=== PATIENT | female | born 1985 | race African-American/Black ===

== ENCOUNTER 2019-06-16 13:47 | Emergency (ER) | payer MEDICAID ==
[~2019-06-16] VITALS: Ht 170.2 cm; Wt 99.8 kg
[2019-06-16 13:55] VITALS: BP 171/93
[2019-06-16] MEDS ORDERED: KETOROLAC TROMETH 60MG/2ML VIAL IM ONE (15:00)
[2019-06-16] MEDS ORDERED: cefTRIAXone SOD 1,000 MG VL IM ONE (15:00)
== END 2019-06-16 15:31 | disposition home or self-care (01) ==
LOC: ER 13:51
DX: L03.111 Cellulitis of right axilla (principal); F17.210 Nicotine dependence, cigarettes, uncomplicated
CPT/HCPCS: 96372; 99283; J0696; J1885

== ENCOUNTER 2020-05-24 17:50 | Emergency (ER) | payer MEDICAID ==
[~2020-05-24] VITALS: Ht 170.2 cm; Wt 133.8 kg
[2020-05-24 18:00] VITALS: BP 136/78
[2020-05-24 19:49] LABS: Basophils # (auto) 0 10 ^3/uL (0-0.2); Basophils % (auto) 0.4 % (0.0-2.0); Eosinophils # (auto) 0.1 10 ^3/uL (0-0.8); Lymphocytes # (auto) 1.1 10 ^3/uL (0.4-5.4); Lymphocytes % (auto) 13.5 % (10.0-50.0); Neutrophils # (auto) 6.7 10 ^3/uL (1.6-8.6); Nucleated Red Blood Cells % 0.1 %
[2020-05-24 19:50] LABS: Eosinophils % (auto) 1.4 % (0.0-7.0); Hematocrit 33.2 % (36.0-46.0); Hemoglobin 10.6 g/dL (12.2-16.2); Mean Corpuscular Hemoglobin 26.5 pg (28.0-32.0); Mean Corpuscular Hgb Conc. 31.9 g/dL (32.0-36.0); Monocytes # (auto) 0.4 10 ^3/uL (0-1.3); Monocytes % (auto) 5.1 % (0.0-12.0); Neutrophils % (auto) 79.6 % (37.0-80.0); Platelet Count (auto) 297 10^3/uL (140-450); Red Cell Distribution Width 17.1 % (11.8-14.3); White Blood Cell 8.4 10^3/uL (4.4-10.8)
[2020-05-24 20:03] LABS: Albumin 2.9 g/dL (3.4-5.0); BUN/Creatinine Ratio 8.1; Calcium 9.1 mg/dL (8.5-10.1); Potassium 3.6 mmol/L (3.5-5.1)
[2020-05-24 20:06] LABS: Bilirubin, Total 0.2 mg/dL (0.2-1.0); Total Protein 7.1 g/dL (6.4-8.2)
[2020-05-24] MEDS ORDERED: LABETALOL HCL 200 MG TAB PO ONE (21:15)
== END 2020-05-24 21:41 | disposition home or self-care (01) ==
LOC: ER 17:50
DX: O16.2 Unspecified maternal hypertension, second trimester (principal); Z3A.25 25 weeks gestation of pregnancy
CPT/HCPCS: 36415; 80053; 85025

== ENCOUNTER 2020-08-19 13:50 | Observation (INO) | payer MEDICAID ==
[~2020-08-19] VITALS: Ht 162.6 cm; Wt 149.7 kg
[2020-08-19] MEDS ORDERED: LABETALOL HCL 200 MG TAB PO SCH (22:00)
== END 2020-08-19 15:40 | disposition home or self-care (01) ==
LOC: UNDOADMOB 13:50 → LDRP 13:50 → UNDODISOB 15:40
PROVIDERS: ADMIT Specialist; ATTEND Specialist
DX: O62.9 Abnormality of forces of labor, unspecified (principal); Z87.891 Personal history of nicotine dependence; Z3A.37 37 weeks gestation of pregnancy
CPT/HCPCS: 59025; 76805; 81002; G0378

== ENCOUNTER 2020-09-04 08:01 | Emergency (ER) | payer MEDICAID ==
[~2020-09-04] VITALS: Ht 175.3 cm; Wt 127.0 kg
[2020-09-04] MEDS ORDERED: cloNIDine HCL 0.1 MG TAB ONE (08:06)
[2020-09-04] MEDS ORDERED: cloNIDine HCL 0.1 MG TAB PO ONE (08:15)
[2020-09-04 09:54] VITALS: BP 170/95
== END 2020-09-04 09:53 | disposition home or self-care (01) ==
LOC: EDBD 08:01 → ER 08:01
DX: I10 Essential (primary) hypertension (principal); J18.9 Pneumonia, unspecified organism; F17.210 Nicotine dependence, cigarettes, uncomplicated; Z20.828 Contact with and (suspected) exposure to other viral communicable diseases
CPT/HCPCS: 36415; 71045; 87426

== ENCOUNTER 2023-07-03 17:02 | Emergency (ER) | payer MEDICAID ==
[~2023-07-03] VITALS: Ht 170.2 cm; Wt 153.6 kg
[2023-07-03 17:10] VITALS: BP 155/95; RESP 20; O2SAT 99
[2023-07-03 17:45] LABS: Basophils # (auto) 0 10 ^3/uL (0-0.2); Basophils % (auto) 0.5 % (0.0-2.0); Eosinophils # (auto) 0.1 10 ^3/uL (0-0.8); Eosinophils % (auto) 2.7 % (0.0-7.0); Hematocrit 33.8 % (36.0-46.0); Hemoglobin 10.6 g/dL (12.2-16.2); Lymphocytes # (auto) 1.7 10 ^3/uL (0.4-5.4); Lymphocytes % (auto) 32.4 % (10.0-50.0); Mean Corpuscular Hemoglobin 23.9 pg (28.0-32.0); Mean Corpuscular Hgb Conc. 31.3 g/dL (32.0-36.0); Mean Corpuscular Volume 76.5 fL (80.0-100.0); Monocytes # (auto) 0.3 10 ^3/uL (0-1.3); Monocytes % (auto) 6.6 % (0.0-12.0); Neutrophils % (auto) 57.8 % (37.0-80.0); Nucleated Red Blood Cells % 0.2 %; Red Blood Cells 4.41 10^6/uL (4.0-5.20); Red Cell Distribution Width 17.4 % (11.8-14.3); White Blood Cell 5.2 10^3/uL (4.4-10.8)
[2023-07-03 18:03] LABS: Alanine Aminotransferase 12 U/L (7-40); Alkaline Phosphatase 94 U/L (46-116); Anion Gap 8 (5-15); Blood Urea Nitrogen 6 mg/dL (9-23); Calcium 9.1 mg/dL (8.5-10.1); Carbon Dioxide 27 mmol/L (20-30); Chloride 103 mmol/L (98-107); Glucose 115 mg/dL (74-106); Potassium 3.7 mmol/L (3.5-5.1); Sodium 138 mmol/L (136-145)
[2023-07-03 18:04] LABS: Albumin 4.4 g/dL (3.2-4.8); Aspartate Aminotransferase 11 U/L (13-40); BUN/Creatinine Ratio 7.3 (10.0-20.0); Bilirubin, Total 0.4 mg/dL (0.2-1.0); Total Protein 7.6 g/dL (5.7-8.2)
[2023-07-03 18:12] LABS: INR 1.02 (0.9-1.15); Partial Thromboplastin Time 30.2 SEC (24.5-34.5); Prothrombin Time 10.7 sec (9.3-11.8)
[2023-07-03 18:25] VITALS: PULSE 89
== END 2023-07-03 20:12 | disposition home or self-care (01) ==
LOC: ER 17:02
DX: R07.89 Other chest pain (principal); R51.9 Headache, unspecified; I10 Essential (primary) hypertension; I25.2 Old myocardial infarction; F17.210 Nicotine dependence, cigarettes, uncomplicated
CPT/HCPCS: 36415; 71046; 80053; 84484; 85025; 85379; 85610; 85730; 93005; 93971

== ENCOUNTER 2023-11-03 22:48 | Inpatient (IN) | payer MEDICAID ==
[~2023-11-03] VITALS: Ht 170.2 cm; Wt 158.1 kg
[2023-11-03 23:18] LABS: Basophils # (auto) 0 10 ^3/uL (0-0.2); Basophils % (auto) 0.7 % (0.0-2.0); Eosinophils # (auto) 0.1 10 ^3/uL (0-0.8); Eosinophils % (auto) 2.3 % (0.0-7.0); Hematocrit 31.5 % (36.0-46.0); Hemoglobin 9.8 g/dL (12.2-16.2); Lymphocytes # (auto) 1.7 10 ^3/uL (0.4-5.4); Lymphocytes % (auto) 31.2 % (10.0-50.0); Mean Corpuscular Hemoglobin 23.5 pg (28.0-32.0); Mean Corpuscular Hgb Conc. 31.2 g/dL (32.0-36.0); Mean Corpuscular Volume 75.2 fL (80.0-100.0); Monocytes # (auto) 0.4 10 ^3/uL (0-1.3); Monocytes % (auto) 8.4 % (0.0-12.0); Neutrophils % (auto) 57.4 % (37.0-80.0); Red Blood Cells 4.19 10^6/uL (4.0-5.20); Red Cell Distribution Width 18.7 % (11.8-14.3); White Blood Cell 5.3 10^3/uL (4.4-10.8)
[2023-11-03 23:38] LABS: Alanine Aminotransferase 13 U/L (7-40); Albumin 4.2 g/dL (3.2-4.8); Alkaline Phosphatase 102 U/L (46-116); Anion Gap 4 (5-15); Aspartate Aminotransferase 12 U/L (13-40); BUN/Creatinine Ratio 11.4 (10.0-20.0); Bilirubin, Total 0.2 mg/dL (0.2-1.0); Blood Urea Nitrogen 9 mg/dL (9-23); Calcium 9.2 mg/dL (8.7-10.4); Carbon Dioxide 27 mmol/L (20-30); Chloride 106 mmol/L (98-107); Glucose 113 mg/dL (74-106); Magnesium 1.9 mg/dL (1.6-2.6); Potassium 3.9 mmol/L (3.5-5.1); Sodium 137 mmol/L (136-145); Total Protein 7.3 g/dL (5.7-8.2)
[2023-11-04] MEDS ORDERED: NITROGLYCERIN 0.4 MG SL TAB SL PRN (03:45)
[2023-11-04] MEDS ORDERED: MORPHINE SULFATE INJ 2 MG/ml SYRG IV PRN (03:45)
[2023-11-04] MEDS ORDERED: TEMAZEPAM 15 MG CAP PO PRN (03:45)
[2023-11-04] MEDS ORDERED: hydrALAZINE HCL 20 MG/ML VL IV PRN (03:45)
[2023-11-04] MEDS ORDERED: ONDANSETRON HCL 4 MG/2 ML VIAL IV PRN (03:45)
[2023-11-04 06:35] VITALS: PULSE 76; RESP 15; O2SAT 95
[2023-11-04 07:37] VITALS: PULSE 85; RESP 16; O2SAT 98
[2023-11-04] MEDS: amLODIPine BESYLATE 5 MG TAB PO SCH (10:00)
[2023-11-04] MEDS: SERTRALINE HCL 50 MG TAB PO SCH (10:14)
[2023-11-04] MEDS: GABAPENTIN 300 MG CAP PO SCH (10:14)
[2023-11-04] MEDS: LOSARTAN POTASSIUM 50 MG TAB PO SCH (10:15)
[2023-11-04 11:18] LABS: Basophils # (auto) 0 10 ^3/uL (0-0.2); Basophils % (auto) 0.9 % (0.0-2.0); Eosinophils # (auto) 0.1 10 ^3/uL (0-0.8); Eosinophils % (auto) 2.4 % (0.0-7.0); Hematocrit 31.2 % (36.0-46.0); Hemoglobin 9.7 g/dL (12.2-16.2); Lymphocytes # (auto) 1.3 10 ^3/uL (0.4-5.4); Lymphocytes % (auto) 29.7 % (10.0-50.0); Mean Corpuscular Hemoglobin 23.3 pg (28.0-32.0); Monocytes # (auto) 0.3 10 ^3/uL (0-1.3); Monocytes % (auto) 7.5 % (0.0-12.0); Neutrophils # (auto) 2.7 10 ^3/uL (1.6-8.6); Neutrophils % (auto) 59.5 % (37.0-80.0); Red Blood Cells 4.16 10^6/uL (4.0-5.20); Red Cell Distribution Width 18.9 % (11.8-14.3); White Blood Cell 4.5 10^3/uL (4.4-10.8)
[2023-11-04 11:30] LABS: INR 1.01 (0.9-1.15); Partial Thromboplastin Time 30.6 SEC (24.5-34.5); Prothrombin Time 10.6 sec (9.3-11.8)
[2023-11-04 11:32] LABS: % Iron Saturation 5.6 % (15-50); Alanine Aminotransferase 13 U/L (7-40); Alkaline Phosphatase 102 U/L (46-116); Calcium 8.8 mg/dL (8.7-10.4); Carbon Dioxide 26 mmol/L (20-30); Chloride 106 mmol/L (98-107); Glucose 127 mg/dL (74-106); Potassium 3.8 mmol/L (3.5-5.1)
[2023-11-04 11:33] LABS: Albumin 4.1 g/dL (3.2-4.8); Anion Gap 5 (5-15); Aspartate Aminotransferase 9 U/L (13-40); BUN/Creatinine Ratio 12.2 (10.0-20.0); Bilirubin, Total 0.3 mg/dL (0.2-1.0); Blood Urea Nitrogen 9 mg/dL (9-23); Magnesium 1.7 mg/dL (1.6-2.6); Phosphorus 3.9 mg/dL (2.4-5.1); Sodium 137 mmol/L (136-145)
[2023-11-04 11:47] LABS: LDL Cholesterol 85 mg/dL (< 100); Triglycerides 63 mg/dL (< 150)
[2023-11-04 11:49] LABS: Cholesterol 129 mg/dL (< 200); HDL Cholesterol 39 mg/dL (40-59)
[2023-11-04 17:20] VITALS: RESP 16; O2SAT 98
[2023-11-04 19:59] VITALS: PULSE 79; RESP 13; O2SAT 96
[2023-11-04] MEDS: ACETAMINOPHEN 325 MG TAB PO PRN (20:46)
[2023-11-05 09:11] LABS: Urine Bacteria NONE SEEN /hpf (None Seen); Urine Blood 3+ /uL (Negative); Urine Clarity HAZY (Clear); Urine Color Yellow (Yellow); Urine Mucus MODERATE (None Seen); Urine Protein, UAD 1+ (Negative); Urine Specific Gravity 1.037 (1.001-1.035); Urine WBC 22 /hpf (0 - 5)
[2023-11-05 09:15] LABS: Chloride 107 mmol/L (98-107); Potassium 4.4 mmol/L (3.5-5.1); Sodium 139 mmol/L (136-145)
[2023-11-05 09:16] LABS: Anion Gap 5 (5-15); Carbon Dioxide 27 mmol/L (20-30)
[2023-11-05 09:17] LABS: Calcium 8.6 mg/dL (8.5-10.1)
[2023-11-05 09:21] LABS: BUN/Creatinine Ratio 11.4 (10.0-20.0); Blood Urea Nitrogen 9 mg/dL (9-23); Glucose 97 mg/dL (74-106)
[2023-11-05 09:25] LABS: Amphetamine Screen, Urine Neg (NEGATIVE); Barbiturate Scree,Urine Neg (NEGATIVE); Benzodiazephine Screen, Urine Neg (NEGATIVE); Cannabinoid Screen, Urine Neg (NEGATIVE); Cocaine Screen, Urine Neg (NEGATIVE); Opiate Scree,Urine Neg (NEGATIVE); Phencyclidine Screen, Urine Neg (NEGATIVE)
[2023-11-05] MEDS: ERGOCALCIFEROL 50,000 UNIT(1.25MG) CAP PO SCH (11:09)
[2023-11-05] MEDS: IRON SUCROSE COMPLEX 100 ML IV SCH (12:32)
[2023-11-05 16:00] VITALS: O2SAT 96
[2023-11-05] MEDS ORDERED: GABA-339 PO (17:12)
[2023-11-05] MEDS ORDERED: FERR1TAB36 PO (17:12)
[2023-11-05] MEDS ORDERED: LOSA25TA15 PO (17:12)
[2023-11-05] MEDS ORDERED: SERT25TA84 PO (17:12)
[2023-11-05] MEDS ORDERED: AML5T PO (17:13)
[2023-11-05 17:29] VITALS: BP 124/65; PULSE 82; RESP 20; O2SAT 96
[2023-11-05 20:00] VITALS: PULSE 110; PULSE 84; RESP 17; O2SAT 98
[2023-11-05 22:00] VITALS: BP 147/80; PULSE 86; RESP 20; TEMP 98.2; O2SAT 98
[2023-11-05 22:30] VITALS: PULSE 87; O2SAT 97
[2023-11-05 22:52] VITALS: O2SAT 97
[2023-11-06] VITALS (11 sets, daily range): BP systolic 113–155; BP diastolic 66–85; PULSE 61–90; RESP 16–20; TEMP 97.9–98.3; O2SAT 97–100
[2023-11-06 05:13] LABS: Basophils # (auto) 0 10 ^3/uL (0-0.2); Basophils % (auto) 0.6 % (0.0-2.0); Eosinophils # (auto) 0.1 10 ^3/uL (0-0.8); Eosinophils % (auto) 2.6 % (0.0-7.0); Hematocrit 30.9 % (36.0-46.0); Hemoglobin 9.6 g/dL (12.2-16.2); Lymphocytes # (auto) 1.8 10 ^3/uL (0.4-5.4); Lymphocytes % (auto) 33.3 % (10.0-50.0); Mean Corpuscular Hemoglobin 23.2 pg (28.0-32.0); Mean Corpuscular Hgb Conc. 31.1 g/dL (32.0-36.0); Mean Corpuscular Volume 74.7 fL (80.0-100.0); Monocytes # (auto) 0.4 10 ^3/uL (0-1.3); Monocytes % (auto) 8.3 % (0.0-12.0); Neutrophils # (auto) 2.9 10 ^3/uL (1.6-8.6); Neutrophils % (auto) 55.2 % (37.0-80.0); Nucleated Red Blood Cells % 0.1 %; Red Blood Cells 4.14 10^6/uL (4.0-5.20); Red Cell Distribution Width 18.8 % (11.8-14.3); White Blood Cell 5.3 10^3/uL (4.4-10.8)
[2023-11-06] MEDS ORDERED: CHOL1CAP47 PO (12:02)
[2023-11-06] MEDS ORDERED: CHOL1TAB28 PO (15:39)
[2023-11-06] MEDS ORDERED: FER325T PO (15:39)
[2023-11-11 03:06] LABS: VMA Random Urine 10.4 mg/L (Undefined); VMA/CREAT Ratio Random Urine 2.7 mg/g Creat (0.0-6.0)
[2023-11-11 06:06] LABS: Renin Activity 0.257 ng/mL/hr (.)
== END 2023-11-06 17:22 | disposition home or self-care (01) | DRG 203 ==
LOC: ER 22:48 → TELE 11-04 03:39 → TELE-WESTW 11-05 14:54
PROVIDERS: ADMIT Nurse Practitioner; ATTEND Internal Medicine Geriatric Medicine
PROC: 5A09357 Assistance with Respiratory Ventilation, Less than 24 Consecutive Hours, Continuous Positive Airway Pressure (ICD-10-PCS; principal; 2023-11-05)
PROC: 5A09357 Assistance with Respiratory Ventilation, Less than 24 Consecutive Hours, Continuous Positive Airway Pressure (ICD-10-PCS; 2023-11-05)
DX: M94.0 Chondrocostal junction syndrome [Tietze] (principal); Z68.43 Body mass index [BMI] 50.0-59.9, adult; D50.9 Iron deficiency anemia, unspecified; E55.9 Vitamin D deficiency, unspecified; F17.200 Nicotine dependence, unspecified, uncomplicated; F41.0 Panic disorder [episodic paroxysmal anxiety]; R55 Syncope and collapse; E66.01 Morbid (severe) obesity due to excess calories; G47.30 Sleep apnea, unspecified; R73.03 Prediabetes; I10 Essential (primary) hypertension; Z83.3 Family history of diabetes mellitus; Z80.1 Family history of malignant neoplasm of trachea, bronchus and lung; Z82.49 Family history of ischemic heart disease and other diseases of the circulatory system
CPT/HCPCS: 36415; 70450; 70551; 71045; 80048; 80053; 80061; 80307; 81001; 82043; 82088; 82306; 82533; 82570; 82607; 82746; 83036; 83540; 83550; 83605; 83615; 83735; 83835; 83880; 84100; 84244; 84443; 84484; 84585; 85025; 85045; 85379; 85610; 85730; 93005; 93306; 93886; 94660; 95819; G0378; J1756

== ENCOUNTER 2024-04-16 11:32 | Inpatient (IN) | payer MEDICAID ==
[~2024-04-16] VITALS: Ht 170.2 cm; Wt 162.0 kg
[~2024-04-16 11:32] MED LIST: AML5T PO; CHOL1TAB28 PO; FER325T PO; FERR1TAB36 PO; GABA-339 PO; SERT25TA84 PO
[2024-04-16 12:05] LABS: Urine Bacteria None Seen /hpf (None Seen)
[2024-04-16 12:13] LABS: Urine Blood Negative /uL (Negative); Urine Clarity Clear (Clear); Urine Color Light-Yellow (Yellow); Urine Mucus FEW (None Seen); Urine Protein, UAD TRACE (Negative); Urine Specific Gravity 1.026 (1.001-1.035); Urine Urobilinogen Normal (Negative); Urine WBC 1 /hpf (0 - 5); Urine pH 5.5 (5.0-9.0)
[2024-04-16 12:31] LABS: Basophils # (auto) 0 10 ^3/uL (0-0.2); Eosinophils # (auto) 0.1 10 ^3/uL (0-0.8); Hemoglobin 10.5 g/dL (12.2-16.2); Lymphocytes # (auto) 1.3 10 ^3/uL (0.4-5.4); Monocytes # (auto) 0.2 10 ^3/uL (0-1.3); Monocytes % (auto) 4.8 % (0.0-12.0); Neutrophils # (auto) 3.4 10 ^3/uL (1.6-8.6); Neutrophils % (auto) 66.8 % (37.0-80.0)
[2024-04-16 12:35] LABS: Basophils % (auto) 0.5 % (0.0-2.0); Eosinophils % (auto) 2.2 % (0.0-7.0); Hematocrit 32.4 % (36.0-46.0); Lymphocytes % (auto) 25.7 % (10.0-50.0); Mean Corpuscular Hemoglobin 25.2 pg (28.0-32.0); Mean Corpuscular Hgb Conc. 32.3 g/dL (32.0-36.0); Mean Corpuscular Volume 78.1 fL (80.0-100.0); Red Blood Cells 4.15 10^6/uL (4.0-5.20); Red Cell Distribution Width 17.7 % (11.8-14.3)
[2024-04-16 12:42] LABS: Chloride 104 mmol/L (98-107); Potassium 3.8 mmol/L (3.5-5.1); Sodium 138 mmol/L (136-145)
[2024-04-16 12:43] LABS: Anion Gap 7 (5-15); Calcium 9.3 mg/dL (8.7-10.4); Carbon Dioxide 27 mmol/L (20-30)
[2024-04-16 12:48] LABS: BUN/Creatinine Ratio 11.1 (10.0-20.0); Blood Urea Nitrogen 9 mg/dL (9-23); Glucose 149 mg/dL (74-106)
[2024-04-16 14:13] VITALS: PULSE 85; RESP 17; O2SAT 99
[2024-04-16 15:17] VITALS: PULSE 84; RESP 18; O2SAT 97
[2024-04-16] MEDS: KETOROLAC TROMETH 30 MG/ML 1ML VIAL IV ONE (15:54)
[2024-04-16] MEDS ORDERED: hydrALAZINE HCL 20 MG/ML VL IV PRN (16:00)
[2024-04-16] MEDS ORDERED: ACETAMINOPHEN 325 MG TAB PO PRN (16:00)
[2024-04-16] MEDS ORDERED: IBUPROFEN 800 MG TAB PO PRN (16:00)
[2024-04-16] MEDS ORDERED: KETOROLAC TROMETH 30 MG/ML 1ML VIAL IV PRN (16:00)
[2024-04-16 16:27] LABS: Triglycerides 89 mg/dL (< 150)
[2024-04-16 16:28] LABS: LDL Cholesterol 79 mg/dL (< 100)
[2024-04-16 16:29] LABS: Cholesterol 133 mg/dL (< 200); HDL Cholesterol 42 mg/dL (40-59)
[2024-04-16 16:52] LABS: Erythrocyte Sedimentation Rate 22 mm/hr (0-20)
[2024-04-16 16:53] VITALS: BP 159/88; TEMP 98.6
[2024-04-16 18:54] VITALS: PULSE 76; RESP 18; O2SAT 95
[2024-04-16] MEDS ORDERED: LOSA-534 PO (20:26)
[2024-04-16] MEDS ORDERED: GABAPENTIN 300 MG CAP PO SCH (22:00)
[2024-04-17] MEDS ORDERED: SERTRALINE HCL 50 MG TAB PO SCH (10:00)
[2024-04-17] MEDS ORDERED: PATIENTS OWN MEDICATION (Gabapentin 600 MG) PO SCH (10:00)
[2024-04-17] MEDS ORDERED: GABAPENTIN 300 MG CAP PO SCH (10:00)
[2024-04-17] MEDS ORDERED: PATIENTS OWN MEDICATION (Sertraline Hcl (Zoloft) 1 TAB) PO SCH (10:00)
[2024-04-17] MEDS ORDERED: amLODIPine BESYLATE 5 MG TAB PO SCH (10:00)
[2024-04-17] MEDS ORDERED: FERROUS SULFATE 325mg EC TAB PO SCH (10:00)
[2024-04-17] MEDS ORDERED: CHOLECALCIFEROL 2000 UNIT PO SCH (10:00)
[2024-04-17] MEDS ORDERED: CHOLECALCIFEROL (VITD3) 1,000UNIT=25mCg TAB PO SCH (10:00)
== END 2024-04-16 20:45 | disposition left against medical advice (07) | DRG 251 ==
LOC: ER 11:32 → TELE 15:59 → TELE-WESTW 17:15
PROVIDERS: ADMIT Nurse Practitioner Family; ATTEND Nurse Practitioner Family
DX: R10.9 Unspecified abdominal pain (principal); Z68.43 Body mass index [BMI] 50.0-59.9, adult; R73.9 Hyperglycemia, unspecified; D64.9 Anemia, unspecified; E66.01 Morbid (severe) obesity due to excess calories; I10 Essential (primary) hypertension; F32.A Depression, unspecified; R31.9 Hematuria, unspecified; Z83.3 Family history of diabetes mellitus
CPT/HCPCS: 36415; 74176; 76856; 80048; 80061; 81001; 81025; 84443; 85025; 85652; 96374; G0378; J1885

== ENCOUNTER 2025-07-05 16:42 | Observation (INO) | payer MEDICAID ==
[~2025-07-05] VITALS: Ht 165.1 cm; Wt 141.2 kg
[~2025-07-05 16:42] MED LIST changes: -CHOL1TAB28 PO; -FERR1TAB36 PO; +LOSA-534 PO; -SERT25TA84 PO
[2025-07-05 16:43] VITALS: BP 147/83; PULSE 87; RESP 15; TEMP 98; O2SAT 96
--- NOTE | 2025-07-05 17:02 | ED.PDOC ---
History of Present Illness HPI Comments 39-year-old female presents to the ER with prior medical history of hypertension, diabetes in the chief complaint of the abdominal pain. Patient is currently 29 weeks and had mild cramping last night but worsened this morning. Patient came in today due from noticing a decrease in movement. Patient is , and high-risk due from hypertension and diabetes. Denies any other symptoms at this time. Denies chills, fever, N/V/D, SOB, CP. No other associated symptoms, modifiers, recent injuries or sick contacts present at this time. Chief Complaint: Abdominal Pain Time Seen by MD: 17:00 Primary Care Provider: unknown Reviewed Notes: Nurses Notes, Medications, Allergies Allergies: Coded Allergies: NO KNOWN ALLERGIES (Unverified , 05/27/10) Home Meds Active Scripts Ferrous Sulfate (FERROUS SULFATE) 325 Mg Tb, 1 TAB PO DAILY, #30 TAB 0 Refills Prov:BERTO VU MD 11/06/23 Reported Medications Losartan Potassium (Losartan Potassium) 50 Mg Tab, 1 TAB PO DAILY, #30 TAB 5 Refills 04/16/24 Amlodipine Besylate (NORVASC TABLET) 5 Mg Tb, 2 TAB PO DAILY, #30 TAB 5 Refills 11/05/23 Gabapentin (Gabapentin) 600 Mg Tab, 600 MG PO DAILY for 30 Days, MG 11/05/23 Information Source: Patient Mode of Arrival: Ambulatory Severity: Moderate Timing: Hours Duration: Since onset, Hours Prehospital treatment: None Past Medical History PAST MEDICAL HISTORY: DM, HTN 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 Family History Family History: Reviewed,noncontributory to illness, Unknown Social History Smoker: Non-Smoker Alcohol: Denies ETOH Use Drugs: Denies Drug Use Lives In: Home Constitutional: denies: chills, diaphoresis, fatigue, fever, malaise, sweats, weakness, others EENTM: denies: blurred vision, double vision, ear bleeding, ear discharge, ear drainage, ear pain, ear ringing, eye pain, eye redness, hearing loss, mouth pain, mouth swelling, nasal discharge, nose bleeding, nose congestion, nose pain, photophobia, tearing, throat pain, throat swelling, voice changes, others Respiratory: denies: cough, hemoptysis, orthopnea, SOB at rest, shortness of breath, SOB with excertion, stridor, wheezing, others Cardiovascular: denies: chest pain, dizzy spells, diaphoresis, Dyspnea on exertion, edema, irregular heart beat, left arm pain, lightheadedness, palpitations, PND, syncope, others Gastrointestinal: reports: abdominal pain; denies: abdomen distended, blood streaked bowels, constipated, diarrhea, dysphagia, difficulty swallowing, hematemesis, melena, nausea, poor appetite, poor fluid intake, rectal bleeding, rectal pain, vomiting, others Genitourinary: reports: (Twenty-nine weeks); denies: abnormal vagina bleeding, burning, dyspareunia, dysuria, flank pain, frequency, hematuria, incontinence, pain, vagina discharge, urgency, others Neurological: denies: dizziness, fainting, headache, left sided numbness, left sided weakness, numbness, paresthesia, pre-existing deficit, right sided numbness, right sided weakness, seizure, speech problems, tingling, tremors, weakness, others Musculoskeletal: denies: back pain, gout, joint pain, joint swelling, muscle pain, muscle stiffness, neck pain, others Integumetry: denies: bruises, change in color, change in hair/nails, dryness, laceration, lesions, lumps, rash, wounds, others Allergic/Immunocompromised: denies: Difficulty Healing, Frequent Infections, Hives, Itching, others Hematologic/Lymphatic: denies: anemia, blood clots, easy bleeding, easy bruising, swollen glands, others Endocrine: denies: excessive hunger, excessive sweating, excessive thirst, excessive urination, flushing, intolerance to cold, intolerance to heat, unexplained weight gain, unexplained weight loss, others Psychiatric: denies: anxiety, bipolar disorder, depression, hopeless, panic disorder, schizophrenia, sleepless, suicidal, others All Other Systems: Reviewed and Negative Physical Exam General Appearance: No Apparent Distress, Normal HEENT: Normal ENT Inspection, Pharynx Normal, TMs Normal Neck: Full Range of Motion, Non-Tender, Normal, Normal Inspection Respiratory: Chest Non-Tender, Lungs Clear, No Accessory Muscle Use, No Respiratory Distress, Normal Breath Sounds Cardiovascular: No Edema, No JVD, No Murmur, No Gallop, Normal Peripheral Pulses, Regular Rate/Rhythm Breast Exam: Deferred Gastrointestinal: No Organomegaly, Non Tender, No Pulsatile Mass, Normal Bowel Sounds, Soft Genitalia: Deferred Pelvic: Deferred Rectal: Deferred Extremities: No calf tenderness, Normal capillary refill, Normal inspection, Normal range of motion, Non-tender, No pedal edema Musculoskeletal : Apperance: Normal Neurologic: Alert, privacy analyst II-XII nml as Tested, No Motor Deficits, Normal Affect, Normal Mood, No Sensory Deficits Cerebellar Function: Normal Reflexes: Normal Skin: Dry, Normal Color, Warm Lymphatic: No Adenopathy Was a procedure done? Was a procedure done?: No Differential Dx Considerations may include: miscarriage X-Ray, Labs, Meds, VS Vital Signs Date Time Temp Pulse Resp B/P (MAP) Pulse Ox O2 Delivery O2 Flow Rate FiO2 07/05/25 16:43 98.0 87 15 147/83 96 98.0 X-Ray, Labs, Meds, VS Comment Patient claimed he was stable to proceed up to L and D. Time of 1ST Reevaluation: 17:30 Reevaluation 1ST: Unchanged Patient Education/Counseling: Diagnosis, Treatment, Prognosis Family Education/Counseling: No Family Present SEPSIS Sepsis Screen Date sepsis recognized/suspect: Jul 05, 2025 Time Sepsis recognized/suspect: 1645 Recent Procedure: No On Antibiotic Therapy: No Respiratory Rate >20: No Heart Rate >90: No Temp<36 C (96.8 F) or >38.3 C: No SBP <90 or MAP <65 mmHG: No New Acute Mental Status Change: No Is the patient on CPAP, BIPAP,: No Vital Signs Date Time Temp Pulse Resp B/P (MAP) Pulse Ox O2 Delivery O2 Flow Rate FiO2 07/05/25 16:43 98.0 87 15 147/83 96 98.0 Departure 1 Departure Time of Disposition: 17:15 Impression: Primary Impression: Abdominal cramping complicating Disposition: 30 STILL A PATIENT Condition: Guarded Critical Care Note Critical Care Time?: No Stability Stability form required: No Heart Score Heart Score: Heart Score Response (Comments) Value History N/A 0 EKG N/A 0 Age N/A 0 Risk Factors N/A 0 Troponin N/A 0 Total 0 I personally scribed for SAMEER HURST ([email or web address]) on 07/05/25 at 17:02. Electronically submitted by Amrit Vazquez ([email or web address]). SAMEER HURSTP Jul 05, 2025 17:02
[2025-07-05] MEDS ORDERED: ASPI-543 PO ×2 (18:32)
[2025-07-05] MEDS ORDERED: PREN-96 PO ×2 (18:32)
[2025-07-05] MEDS ORDERED: LABE200T33 PO ×2 (18:32)
[2025-07-05] MEDS ORDERED: BENZ20GE MT (23:07)
--- NOTE | 2025-07-07 12:51 | DVHDS2 ---
Physician Discharge Progress N Final Diagnosis: 29 wks dec movement Operations or Procedures: Operations or Procedures nst reactive reviwed,sono Condition on Discharge: Good Disposition: to er Discharge Instructions: Diet: Regular, Consistent carbohydrate Activity: No Restrictions, As Tolerated Medications: na Follow Up Care: Specialist: to er Discharge Statement: "Patient was advised to return to the ER or call 911 if any headaches, dizziness, shortness of breath, chest pain, abdominal pain, bleeding, fevers, or worsening of medical condition. Patient was counseled about treatment plan, medications, possible side effects, patientverbalized understanding. All questions were answered to the best of my ability. This discharge took greater then 30 minutes in planning, reviewing documentation, counseling the patient, and discussing with other team members." Visit Coding OBGYN Date of Service: Jul 05, 2025 Billing Provider: COURTNEY LANE DO [facility] Common Visit Codes: 10065-UJGFONP OBS CARE (HIGH) [facility] Procedure Codes: 11397-35- NON-STRESS TEST COURTNEY LANE DO Jul 07, 2025 12:51
== END 2025-07-05 18:47 | disposition home or self-care (01) ==
LOC: ER 16:42 → LDRP 17:00
PROVIDERS: ADMIT Obstetrics & Gynecology; ATTEND Obstetrics & Gynecology
DX: O16.3 Unspecified maternal hypertension, third trimester (principal); O24.913 Unspecified diabetes mellitus in pregnancy, third trimester; O99.113 Other diseases of the blood and blood-forming organs and certain disorders involving the immune mechanism complicating pregnancy, third trimester; D84.9 Immunodeficiency, unspecified; Z3A.29 29 weeks gestation of pregnancy; Z98.890 Other specified postprocedural states
CPT/HCPCS: 59025; 81002; 82948; 99284; G0378; 94760

== ENCOUNTER 2025-07-05 18:51 | Emergency (ER) | payer MEDICAID ==
[~2025-07-05] VITALS: Ht 165.1 cm; Wt 142.2 kg
[~2025-07-05 18:51] MED LIST changes: +ASPI-543 PO; +LABE200T33 PO; +PREN-96 PO
--- NOTE | 2025-07-05 19:14 | ED.PDOC ---
History of Present Illness HPI Comments 39 year old female with PMHx HTN, DM presents to the ED with a chief compliant of abscess onset 3 days. Patient is currently 28 weeks , P:4 A:2. Patient states she has been experiencing RT tooth abscess for the past 3 days, was seen at [facility] 1 day ago, prescribed Penicillin and Tylenol. Since yesterday (07/04/25) to today (07/05/25) around 12:00 patient has taken a total of 5,000mg Tylenol, about 10 - 500 mg pills. Patient began experiencing sweats, chills, LUQ pain, blurred vision last night, was not feeling baby move, she felt baby move a few minutes after, symptoms improved. Today, patient noticed abdominal pain, headache, came to ED earlier today, was sent to L&D. Patient was cleared from L&D and advised to return to ED. Patient states pain has not improved, BP was elevated 168/100. Denies fever, chills, chest pain, shortness of breath, hematemesis, dysuria, hematuria. No other symptoms or modifying factors present at this time. REVIEW OF SYSTEMS: General: No fever or fatigue. Sweats and chills. HEENT: No sore throat, no earache, no congestion, no neck pain. Tooth pain. Blurred vision. Cardiac: No chest pain. No palpitations. Lungs: No shortness of breath, no cough. GI: No nausea, no vomiting, no diarrhea, no constipation. LUQ pain. : No dysuria, frequency, or urgency. No hematuria. Musculoskeletal: No joint pain , no joint swelling, no extremity edema. Skin: No rash, no itching. Neuro: no dizziness, no weakness. Headache (And as sated in HPI) PHYSICAL EXAM: General: Awake, alert and oriented. No acute distress. Skin: Skin in warm, dry and intact. Appropriate color for ethnicity. HEENT: The head is normocephalic and atraumatic. Conjunctivae are clear without exudates or hemorrhage. Sclera is non-icteric. Eyelids are normal in appearance without swelling or lesions. Mild RT facial swelling. No gingival abscess noted. No posterior pharyngeal edema or erythema. No submental induration. Neck: The neck is supple with normal range of motion. No JVD. Cardiac: Heart rate and rhythm are normal. Respiratory: No signs of respiratory distress. Neurological: The patient is awake, alert and oriented to person, place, and time with normal speech. Speech is clear. There is no facial asymmetry. Psychiatric: Appropriate mood and affect. Good judgement and insight. Chief Complaint: Abscess Time Seen by MD: 19:10 Primary Care Provider: unknown Reviewed Notes: Medications, Allergies Allergies: Coded Allergies: NO KNOWN ALLERGIES (Unverified , 05/27/10) Home Meds Active Scripts Benzocaine (Dental) (Hurricaine) 20 % Gel, 20 % MT TIDPRN PRN for 5 Days, #1 BOTTLE Prov:THOMAS PIZARRO MD 07/05/25 Ferrous Sulfate (FERROUS SULFATE) 325 Mg Tb, 1 TAB PO DAILY, #30 TAB 0 Refills Prov:BERTO VU MD 11/06/23 Reported Medications Aspirin (Aspir-Low) 81 Mg Tab, 81 MG PO DAILY for 30 Days, MG 07/05/25 Vit W/ Ferrous Fumara ( One Daily) Daily Tab, 1 TAB PO DAILY, #90 TAB 3 Refills 07/05/25 Labetalol Hcl (Labetalol Hcl) 200 Mg Tab, 200 MG PO BID for 30 Days, MG 07/05/25 Losartan Potassium (Losartan Potassium) 50 Mg Tab, 1 TAB PO DAILY, #30 TAB 5 Refills 04/16/24 Amlodipine Besylate (NORVASC TABLET) 5 Mg Tb, 2 TAB PO DAILY, #30 TAB 5 Refills 11/05/23 Gabapentin (Gabapentin) 600 Mg Tab, 600 MG PO DAILY for 30 Days, MG 11/05/23 Information Source: Patient Mode of Arrival: Ambulatory Severity: Moderate Timing: Days Duration: Since onset Prehospital treatment: Pain Meds Past Medical History PAST MEDICAL HISTORY: DM, HTN Surgical History (Other): Gastric sleeve WORKERS' COMPENSATION MAGISTRATE History: Denies all WORKERS' COMPENSATION MAGISTRATE Hx Family History Family History: Reviewed,noncontributory to illness Social History Smoker: Non-Smoker Alcohol: Denies ETOH Use Drugs: Denies Drug Use Lives In: Home Was a procedure done? Was a procedure done?: Yes Sedation Sedation?: No Informed consent obtained: Yes Other Procedure Procedure Dental Block Anesthetic 50/50 Bupivucane 0.25%/ Lidocaine w/o epi 1%. 6 mL Informed consent obtained: Yes Risks, benefits, and alternati: Yes Differential Dx Considerations may include: Differential diagnoses considered include but are not limited to dental caries, dental abscess, gingivitis, dental trauma, pharyngitis, cellulitis, other. X-Ray, Labs, Meds, VS Vital Signs Date Time Temp Pulse Resp B/P (MAP) Pulse Ox O2 Delivery O2 Flow Rate FiO2 07/05/25 23:38 98.9 85 20 141/68 (92) 99 98.9 07/05/25 23:18 85 20 171/88 07/05/25 22:00 84 15 160/72 (101) 07/05/25 20:00 85 07/05/25 19:44 80 16 99 Room Air* 0 21 07/05/25 19:44 98.9 80 16 179/98 (125) 99 98.9 07/05/25 18:52 97.8 181 20 168/100 99 97.8 Lab Test 07/05/25 19:35 Range/Units White Blood Count 6.4 4.4-10.8 10^3/uL Red Blood Count 3.72 L 4.0-5.20 10^6/uL Hemoglobin 9.5 L 12.2-16.2 g/dL Hematocrit 29.5 L 36.0-46.0 % Mean Corpuscular Volume 79.3 L 80.0-100.0 fL Mean Corpuscular Hemoglobin 25.4 L 28.0-32.0 pg Mean Corpuscular Hemoglobin Concent 32.1 32.0-36.0 g/dL Red Cell Distribution Width 16.7 H 11.8-14.3 % Platelet Count 268 140-450 10^3/uL Mean Platelet Volume 7.0 6.9-10.8 fL Neutrophils (%) (Auto) 72.4 37.0-80.0 % Lymphocytes (%) (Auto) 19.5 10.0-50.0 % Monocytes (%) (Auto) 6.5 0.0-12.0 % Eosinophils (%) (Auto) 1.1 0.0-7.0 % Basophils (%) (Auto) 0.5 0.0-2.0 % Neutrophils # (Auto) 4.7 1.6-8.6 10 ^3/uL Lymphocytes # (Auto) 1.3 0.4-5.4 10 ^3/uL Monocytes # (Auto) 0.4 0-1.3 10 ^3/uL Eosinophils # (Auto) 0.1 0-0.8 10 ^3/uL Basophils # (Auto) 0 0-0.2 10 ^3/uL Nucleated Red Blood Cells 0.0 % Sodium Level 137 136-145 mmol/L Potassium Level 3.9 3.5-5.1 mmol/L Chloride Level 103 98-107 mmol/L Carbon Dioxide Level 24 20-31 mmol/L Anion Gap 10 5-15 Blood Urea Nitrogen < 5 L 9-23 mg/dL Creatinine 0.64 0.550-1.02 mg/dL Glomerular Filtration Rate Calc 117 >90 mL/min BUN/Creatinine Ratio 7.8 L 10.0-20.0 Serum Glucose 76 74-106 mg/dL Lactic Acid Level 0.9 0.4-2.0 mmol/L Calcium Level 8.8 8.7-10.4 mg/dL Total Bilirubin 0.3 0.2-1.0 mg/dL Aspartate Amino Transferase (AST) 10 L 13-40 U/L Alanine Aminotransferase (ALT) < 9 7-40 U/L Alkaline Phosphatase 131 H 46-116 U/L Salicylates Level < 3.0 -30 mg/dL Acetaminophen Level 3.0 L 10.0-20.0 UG/ML Current Medications Medications (Trade) Dose Ordered Sig/William Route Start Time Stop Time Status Last Admin Benzocaine (Hurricaine [place]) 1 spr ONCE ONCE MT 07/05/25 19:45 07/05/25 19:46 DC 07/05/25 20:14 Morphine Sulfate 2 mg ONCE ONCE IV 07/05/25 22:45 07/05/25 22:46 DC 07/05/25 23:18 Time of 1ST Reevaluation: 19:40 Reevaluation 1ST: Unchanged Patient Education/Counseling: Need For Follow Up Family Education/Counseling: No Family Present SEPSIS Sepsis Screen Date sepsis recognized/suspect: Jul 05, 2025 Time Sepsis recognized/suspect: 1856 Recent Procedure: No On Antibiotic Therapy: No Respiratory Rate >20: No Heart Rate >90: No Temp<36 C (96.8 F) or >38.3 C: No SBP <90 or MAP <65 mmHG: No New Acute Mental Status Change: No Is the patient on CPAP, BIPAP,: No Physician Orders Blood Culture (07/05/25 19:12) Vital Signs Date Time Temp Pulse Resp B/P (MAP) Pulse Ox O2 Delivery O2 Flow Rate FiO2 07/05/25 23:38 98.9 85 20 141/68 (92) 99 98.9 07/05/25 23:18 85 20 171/88 07/05/25 22:00 84 15 160/72 (101) 07/05/25 20:00 85 07/05/25 19:44 80 16 99 Room Air* 0 21 07/05/25 19:44 98.9 80 16 179/98 (125) 99 98.9 07/05/25 18:52 97.8 181 20 168/100 99 97.8 Laboratory Tests Test 07/05/25 19:35 Lactic Acid Level 0.9 mmol/L (0.4-2.0) White Blood Count 6.4 10^3/uL (4.4-10.8) Medications Medications Dose Ordered Sig/William Route Start Time Stop Time Status Last Admin Dose Admin Benzocaine 1 spr ONCE ONCE MT 07/05/25 19:45 07/05/25 19:46 DC 07/05/25 20:14 Morphine Sulfate 2 mg ONCE ONCE IV 07/05/25 22:45 07/05/25 22:46 DC 07/05/25 23:18 Departure 1 Departure Time of Disposition: 22:56 Impression: Primary Impression: Pain, dental Disposition: 01 HOME / SELF CARE / HOMELESS Condition: Stable Additional Instructions: ED DISCHARGE INSTRUCTIONS Instructions: Please read all instructions provided in this packet carefully. Although you have been discharged from the Emergency Department, this does not mean that you have a "clean bill of health". No definitive diagnosis for your symptoms has been made today. It is possible that you are in the process of developing a serious illness. This is why you must return to the ED without fail if any new or worsening symptoms (especially if your symptoms include chest pain, trouble breathing, abdominal pain, fever, headache, confusion, trouble seeing, or trouble walking) It is also very important that you see a primary care provider (PCP) within the next 1-3 days to follow up. Follow up with dentistry as soon as possible. If you are unable to get an appointment, return to the ED for re-evaluation. You had elevated blood pressure reading today. Untreated high blood pressure can have serious consequences. However, you need a follow-up appointment to recheck your blood pressure to determine whether or not you need treatment. Make an appointment with your primary care provider for this within the next week. Tooth and Gum Pain: Care Instructions Overview The most common causes of dental pain are tooth decay and gum disease. Pain can also be caused by an infection of the tooth (abscess) or the gums. Or you may have pain from a broken or cracked tooth. Other causes of pain include infection and damage to a tooth from nervous grinding of your teeth. A wisdom tooth can be painful when it is coming in but cannot break through the gum. It can also be painful when the tooth is only partway in and extra gum tissue has formed around it. The tissue can get inflamed (pericoronitis), and sometimes it gets infected. Prompt dental care can help find the cause of your toothache and keep the tooth from dying or gum disease from getting worse. Self-care at home may reduce your pain and discomfort. Follow-up care is a tesfaye part of your treatment and safety. Be sure to make and go to all appointments, and call your dentist or doctor if you are having problems. It's also a good idea to know your test results and keep a list of the medicines you take. How can you care for yourself at home? To reduce pain and facial swelling, put an ice or cold pack on the outside of your cheek for 10 to 20 minutes at a time. Put a thin cloth between the ice and your skin. Do not use heat. If your doctor prescribed antibiotics, take them as directed. Do not stop taking them just because you feel better. You need to take the full course of antibiotics. Ask your doctor if you can take an [id number] pain medicine, such as acetaminophen (Tylenol), ibuprofen (Advil, Motrin), or naproxen (Aleve). Be safe with medicines. Read and follow all instructions on the label. Avoid very hot, cold, or sweet foods and drinks if they increase your pain. Rinse your mouth with warm salt water every 2 hours to help relieve pain and swelling. Mix 1 teaspoon of salt in 8 ounces of water. Talk to your dentist about using special toothpaste for sensitive teeth. To reduce pain on contact with heat or cold or when brushing, brush with this toothpaste regularly or rub a small amount of the paste on the sensitive area with a clean finger 2 or 3 times a day. Floss gently between your teeth. Do not smoke or use spit tobacco. Tobacco use can make gum problems worse, decreases your ability to fight infection in your gums, and delays healing. If you need help quitting, talk to your doctor about stop-smoking programs and medicines. These can increase your chances of quitting for good. When should you call for help? Call 911 anytime you think you may need emergency care. For example, call if: You have trouble breathing. Call your dentist or doctor now or seek immediate medical care if: You have signs of infection, such as: Increased pain, swelling, warmth, or redness. Red streaks leading from the area. Pus draining from the area. A fever. Watch closely for changes in your health, and be sure to contact your doctor if: You do not get better as expected. Credits for Tooth and Gum Pain: Care Instructions Current as of: April 06, 2024 Author: [employer] Staff Clinical Review Board All [employer] education is reviewed by a team that includes physicians, nurses, advanced practitioners, registered dieticians, and other healthcare professionals. e-Prescriptions Benzocaine (Dental) (Hurricaine) 20 % Gel 20 % MT TIDPRN PRN for 5 Days, #1 BOTTLE Prov: THOMAS PIZARRO MD 07/05/25 Comments MDM: 39-year-old female with dental pain. She was cleared by L and D prior to evaluation. Patient is currently on a course of penicillin and taking Tylenol for her pain. Pain somewhat improved with treatment in the emergency department. She is advised to follow up with Dentistry as soon as possible. I reviewed the following notes from the pt's past medical encounters: N/A The following tests were ordered, and results were reviewed by me: (See diagnostic results section) The following test were independently interpreted by me: N/A Additional information was gathered from interviewing the following independent historians: N/A I reviewed and agreed with the following test results read by other providers: N/A I discussed treatments and results with patient Decision regarding hospitalization or escalation of hospital level of care: Risks and benefits of admission for further treatment of patient's condition was considered however due to patient's stable condition patient will be discharged to follow up closely or return to care for worsening of condition or inability to follow up. Critical Care Note Critical Care Time?: No Stability Stability form required: No Heart Score Heart Score: Heart Score Response (Comments) Value History N/A 0 EKG N/A 0 Age N/A 0 Risk Factors N/A 0 Troponin N/A 0 Total 0 I personally scribed for THOMAS PIZARRO MD ([email or web address]) on 07/05/25 at 19:41. Electronically submitted by Gema Rene ([email or web address]). THOMAS PIZARRO MD Jul 05, 2025 19:14
[2025-07-05 19:44] VITALS: PULSE 80; RESP 16; O2SAT 99
[2025-07-05] MEDS ORDERED: BUPIVACAINE 0.75% INJ 10ML MPV SDV IJ ONE (19:45)
[2025-07-05 19:58] LABS: Hemoglobin 9.5 g/dL (12.2-16.2); Nucleated Red Blood Cells % 0.0 %
[2025-07-05 20:00] LABS: Hematocrit 29.5 % (36.0-46.0); Mean Corpuscular Hemoglobin 25.4 pg (28.0-32.0); Mean Corpuscular Volume 79.3 fL (80.0-100.0)
[2025-07-05 20:02] LABS: Chloride 103 mmol/L (98-107); Potassium 3.9 mmol/L (3.5-5.1); Sodium 137 mmol/L (136-145)
[2025-07-05 20:03] LABS: Anion Gap 10 (5-15); Carbon Dioxide 24 mmol/L (20-31)
[2025-07-05 20:04] LABS: Calcium 8.8 mg/dL (8.7-10.4)
[2025-07-05 20:09] LABS: Glucose 76 mg/dL (74-106)
[2025-07-05] MEDS: BENZOCAINE (DENTAL) 20 % SPRAY 60ML MT ONE (20:14)
[2025-07-05] MEDS: LIDOCAINE 1% HCL (LOCAL ANESTH.) INJ 20ML MDV ID ONE (20:30)
[2025-07-05] MEDS: BUPIVACAINE 0.25% INJ 50ML VIAL IJ ONE (20:30)
[2025-07-05] MEDS: LIDOCAINE 1% HCL (LOCAL ANESTH.) INJ 20ML MDV IJ ONE (20:30)
[2025-07-05] MEDS: BUPIVACAINE 0.25% INJ 50ML VIAL ID ONE (20:30)
[2025-07-05 21:01] LABS: Alanine Aminotransferase < 9 U/L (7-40); Alkaline Phosphatase 131 U/L (46-116); BUN/Creatinine Ratio 7.8 (10.0-20.0); Bilirubin, Total 0.3 mg/dL (0.2-1.0); Blood Urea Nitrogen < 5 mg/dL (9-23)
[2025-07-05 21:02] LABS: Acetaminophen 3.0 UG/ML (10.0-20.0); Salicylate < 3.0 mg/dL (-30)
[2025-07-05] MEDS: SODIUM CHLORIDE 0.9% 1,000 ML IV ONE ×2 (21:19)
[2025-07-05] MEDS ORDERED: BENZ20GE MT (23:07)
[2025-07-05] MEDS: MORPHINE SULFATE INJ 2 MG/ml SYRG IV ONE (23:18)
[2025-07-05 23:38] VITALS: BP 141/68; PULSE 85; RESP 20; TEMP 98.9; O2SAT 99
== END 2025-07-06 | disposition home or self-care (01) ==
LOC: ER 18:51
DX: O26.893 Other specified pregnancy related conditions, third trimester (principal); K04.7 Periapical abscess without sinus; O10.913 Unspecified pre-existing hypertension complicating pregnancy, third trimester; O24.113 Pre-existing type 2 diabetes mellitus, in pregnancy, third trimester; Z3A.28 28 weeks gestation of pregnancy; Z79.82 Long term (current) use of aspirin; Z79.899 Other long term (current) drug therapy
CPT/HCPCS: 36415; 64400; 80048; 80329; 82247; 83605; 84075; 84450; 84460; 85025; 87040; 96374; 99285; J2003; J2270; J3490